=== PATIENT | male | born 1950 | race Caucasian/White ===

== ENCOUNTER 2018-09-08 13:41 | Emergency (ER) | payer OTHER ==
--- NOTE | 2018-09-08 14:40 | EDPHY ---
H & P Stated Complaint: slipped ~2ft off trailer landed on bk/head/L shoulder-no c spine tend Time Seen by Provider: 09/08/18 13:52 HPI/ROS: CHIEF COMPLAINT: Head injury, upper thoracic pain HISTORY OF PRESENT ILLNESS: 68-year-old male in the ER via private vehicle complaining of headache, right shoulder pain, thoracic spine pain reproducible with palpation and with inspiration after he stepped backward off of a trailer at a height of approximately 10 in onto [place] frozen ground surface. Positive loss of consciousness for few seconds. This occurred shortly prior to arrival. He also impacted his right shoulder has reproducible pain to his right shoulder. This was not a syncopal episode. There was no prodrome. No alcohol or drug use. No midline C-spine pain or peripheral paresthesia, weakness, numbness. REVIEW OF SYSTEMS: 10 systems reviewed and negative with the exception of the elements mentioned in the history of present illness PAST MEDICAL/SURGICAL HISTORY: no anticoagulant use, no relevant medical/ surgical history SOCIAL HISTORY: denies alcohol use at time of incident PHYSICAL EXAM 1) GENERAL: Well-developed, well-nourished, alert and oriented. Appears to be in no acute distress. Answering questions appropriately. 2) HEAD: Normocephalic, mild hematoma occipital lobe midline 3) HEENT: Pupils equal, round, reactive to light bilaterally. Negative Horners. Nasopharynx, oropharynx, clear. No deformity or angulation of nose. No septal hematoma. No rhinorrhea. No oral trauma. Ears bilaterally with normal tympanic membranes. No hemotympanum. No fluid or blood in the external auditory canal. No raccoon eyes. No Travis sign. Teeth are normally aligned with no gross malocclusion, TMJ bilaterally nontender, facial bones nontender including the zygomatic arch, maxilla mandible. 4) NECK: No cervical collar is on. Posterior cervical spine is nontender, no stepoff, no effusion. Full range of motion which does not elicit any midline cervical spine pain, no posterior midline tenderness, no step-off. 5) LUNGS: Clear to auscultation bilaterally, no wheezes, no rhonchi, no retractions. No obvious signs of trauma. No chest wall pain. No flaring, no grunting. Moving symmetrically. No crepitus. 6) HEART: [Regular rate and rhythm, 7) ABDOMEN: No guarding, no rebound, no focal tenderness, no peritoneal signs, no signs of trauma, no ecchymosis 8) MUSCULOSKELETAL: Moving all extremities, no focal areas of tenderness, no obvious trauma. 9) BACK: No midline vertebral tenderness, no fluctuance, no step-off, no obvious trauma, no visual or palpable abnormality. 10) SKIN: No laceration. No abrasion 11) NEURO: Awake, alert, and oriented to person, place and time. Answers questions appropriately. There were no obvious focal neurologic abnormalities. No cerebellar dysfunction. Cranial nerves 2 through to 12 intact. Normal steady gait. Upper and lower extremities bilaterally with strength 5 / 5, reflexes 2+. DIFFERENTIAL DIAGNOSIS: Not necessarily in any particular order, my differential diagnosis includes, but is not limited to, concussion, skull fracture, intraparenchymal contusion, subarachnoid, subdural and epidural hematoma. The patient understands that this diagnosis is provisional and can never be 100% accurate. - Medical/Surgical History Hx Asthma: No Hx Chronic Respiratory Disease: No Hx Diabetes: No Hx Cardiac Disease: No Hx Renal Disease: No Hx Cirrhosis: No Hx Alcoholism: No Hx HIV/AIDS: No Hx Splenectomy or Spleen Trauma: No Other PMH: hypothyroid, BPH - Social History Smoking Status: Light smoker Constitutional: Initial Vital Signs Temperature (C) 36.5 C 09/08/18 13:46 Heart Rate 74 09/08/18 13:46 Respiratory Rate 16 09/08/18 13:46 Blood Pressure 114/74 09/08/18 13:46 O2 Sat (%) 98 09/08/18 13:46 O2 Delivery Mode Room Air Allergies/Adverse Reactions: bupropion HCl [From Wellbutrin] Allergy (Verified 09/08/18 13:46) Anxiety Home Medications: Medication Instructions Recorded TRAZODONE HCL 150 mg PO HS 08/11/09 Citalopram [celeXA 20 MG (RX)] 20 mg PO DAILY 01/27/13 Levothyroxine 5 mcg PO DAILY 02/01/16 Cyclobenzaprine [Flexeril 10 MG 10 mg PO TID #10 tab 09/08/18 (RX)] Medical Decision Making - Diagnostics Imaging Results: Imaging Impressions Cervical Spine CT 09/08/18 14:07 Impression: 1. No acute fracture or soft tissue swelling. 2. If the patient has persistent pain or neurologic deficits, consider cervical spine MRI. Findings discussed with Emergency Department physician front desk assistant, Emelyn Felix, on 09/08/2018 at 14:37. Chest X-Ray 09/08/18 14:07 Impression: 1. Negative. No acute fracture. 2. No pneumothorax. Chronic mild airways disease unchanged. Head CT 09/08/18 14:07 Impression: Negative. No acute fracture or evidence of acute intracranial injury. Findings discussed with Emergency Department physician front desk assistant, Emelyn Felix, on 09/08/2018 at 14:37. Shoulder X-Ray 09/08/18 14:07 Impression: No acute osseous findings. Thoracic Spine X-Ray 09/08/18 14:07 Impression: Negative. No acute compression fracture. Images reviewed myself Procedures: Procedure: Splint A sling splint was applied by ER heat treat technician. After application of the splint I returned and re-examined the patient. The splint was adequately immobilizing the joint and distal to the splint the patient's circulation and sensation were intact. Patient shows no signs of compartment syndrome. Was given orthopedic precautions. ED Course/Re-evaluation: 2:09 p.m.: Head CT ordered in this patient for trauma for the following indication: Greater than 65 years old. 3:39 p.m.: Re-evaluation. Discussed with the patient his imaging results negative for posttraumatic sequelae, no intracranial hemorrhage, no fracture pneumothorax. He is sitting upright, answering questions appropriately, appears comfortable at this time. He has been given an incentive spirometer. Given my usual and customary head injury, back pain and orthopedic precautions instructions. Discussed limitations of x-ray of the right shoulder with the patient, notably informed that non osseous injury is not ruled out. Stressed follow up with Orthopedics and given this referral. Placed an upper extremity sling. He feels comfortable being discharged. All questions and concerns addressed by myself. Care of patient under supervision of secondary supervising physician Dr Damon with whom I discussed case. Departure - Departure Disposition: Home, Routine, Self-Care Clinical Impression: Head injury Qualifiers: Encounter type: initial encounter Qualified Code(s): S09.90XA - Unspecified injury of head, initial encounter Condition: Good Instructions: Head Injury (ED), Shoulder Sprain (ED) Additional Instructions: ALTHOUGH THERE IS NO EVIDENCE OF SERIOUS HEAD INJURY AT THIS TIME, DELAYED SIGNS CAN APPEAR 24 TO 48 HOURS AFTER INJURY. PLEASE RETURN TO THE EMERGENCY DEPARTMENT (ED) IMMEDIATELY IF YOU HAVE INCREASED HEADACHE, PERSISTENT HEADACHE , VOMITING, WEAKNESS, CONFUSION OR VISUAL PROBLEMS. WE RECOMMEND THAT YOU DO NOT RESUME CONTACT SPORTS OR ACTIVITIES THAT TAKE COORDINATION OR BALANCE SUCH SKIING OR RIDING A BICYCLE UNTIL CLEARED TO DO SO BY YOUR DOCTOR OR BY A NEUROLOGIST. Referrals: Omari Giles MD [Primary Care Provider] - 2-3 days, call for appt. Georgi Feliciano MD [Medical Doctor] - 2-3 days, call for appt. (Dr. Guero Feliciano is an orthopedic surgeon) Prescriptions: Cyclobenzaprine [Flexeril 10 MG (RX)] 10 mg PO TID #10 tab
[2018-09-08 16:08] VITALS: BP 141/98
== END 2018-09-08 16:10 | disposition home or self-care (01) ==
DX: S09.90XA Unspecified injury of head, initial encounter (principal); M54.6 Pain in thoracic spine; M25.511 Pain in right shoulder; W17.89XA Other fall from one level to another, initial encounter; Y92.9 Unspecified place or not applicable; Y93.9 Activity, unspecified; Y99.9 Unspecified external cause status
CPT/HCPCS: A4565

== ENCOUNTER → 2019-01-05 | Outpatient (CLI) | payer OTHER | LOC: BMCIMAGING 15:12 ==